=== PATIENT | male | born 1945 | race Caucasian/White ===

== ENCOUNTER 2017-10-05 15:38 | Observation (INO) | payer MEDICARE, OTHER ==
[2017-10-05] MEDS ORDERED: NS 0.9% 1000 ML* 1,000 ML IV ONE (16:19)
--- NOTE | 2017-10-05 16:24 | ED ---
Complex/Multi-Sys Presentation - HPI Summary HPI Summary: 72-year-old male presents with weakness for the past couple days. He states on he was out in the sun weed waking. He states is unsure how long was out in the sun but sat on steps for a long time as did not feel well. He felt very weak after that. He admits to decreased appetite. Denies any headache or dizziness. No fevers. He admits to shortness of breath that he states has resolved but states is still present. admits to occasionally chest pressure in the center of chest two days ago but no chest pain for the past day. No palpitations. He states SOB has improved but states that it has not. No bowel pain. No nausea and no vomiting. no diarrhea. has been urinating as normal and urine has been clear. no hematuria. no flank pain. he also has lost some weight over the past couple days. He is a smoker. He has history of HTN. He did golf yesterday. He claims all of his symptoms are due to the heat. - History Of Current Complaint Chief Complaint: EDWeakness Time Seen by Provider: 10/05/17 16:15 - Allergies/Home Medications Allergies/Adverse Reactions: Allergies Allergy/AdvReac Type Severity Reaction Status Date / Time No Known Allergies Allergy Verified 10/05/17 15:43 PMH/Surg Hx/FS Hx/Imm Hx Endocrine/Hematology History: Denies: Hx Diabetes Cardiovascular History: Reports: Hx Hypertension Denies: Hx Congestive Heart Failure, Hx Pacemaker/ICD Respiratory History: Reports: Other Respiratory Problems/Disorders History: Denies: Hx Renal Disease Sensory History: Denies: Hx Hearing Aid Psychiatric History: Denies: Hx Panic Disorder - Surgical History Surgery Procedure, Year, and Place: APPY Infectious Disease History: No Infectious Disease History: Denies: Traveled Outside the [place] in Last 30 Days - Family History Known Family History: Positive: Hypertension - Social History Alcohol Use: Rare Substance Use Type: Reports: None Smoking Status (MU): Never Smoked Tobacco Review of Systems Negative: Fever Positive: Chest Pain - resolved Positive: Shortness Of Breath. Negative: Cough Negative: Abdominal Pain Positive: Weakness. Negative: Headache All Other Systems Reviewed And Are Negative: Yes Physical Exam Triage Information Reviewed: Yes Vital Signs On Initial Exam: Initial Vitals Temp Pulse Resp BP Pulse Ox 99.2 F 99 18 118/73 96 07/16/18 15:43 10/05/17 15:43 10/05/17 15:43 10/05/17 15:43 10/05/17 15:43 Vital Signs Reviewed: Yes Appearance: Positive: Well-Appearing Skin: Positive: Warm, Dry Head/Face: Positive: Normal Head/Face Inspection Eyes: Positive: Normal, EOMI, NINA, Conjunctiva Clear ENT: Positive: Pharynx normal Neck: Positive: Supple, Nontender, No Lymphadenopathy Respiratory/Lung Sounds: Positive: Clear to Auscultation, Breath Sounds Present Cardiovascular: Positive: Normal, RRR Abdomen Description: Positive: Nontender, Soft Bowel Sounds: Positive: Present Musculoskeletal: Positive: Normal Neurological: Positive: Normal Psychiatric: Positive: Normal Diagnostics - Vital Signs Vital Signs Temp Pulse Resp BP Pulse Ox 10/05/17 15:43 99.2 F 99 18 118/73 96 - Laboratory Result Diagrams: 10/05/17 16:22 10/05/17 16:22 Lab Statement: Any lab studies that have been ordered have been reviewed, and results considered in the medical decision making process. - EKG No standard instances EKG Rhythm: Sinus Rhythm EKG Interpretation: inverted t waves v1-v6 as compared to previous Re-Evaluation - Re-Evaluation First Eval Re-Evaluation Time: 16:58 Comment: claims does not have sob now, convinced patient that should get a chest xray Second Eval Comment: spoke with about results as patient is in xray and she states he has just been off the past couple days. Complex Multi-Symp Course/Dx Course Of Treatment: 72-year-old male presents with weakness for the past couple days. He states on he was out in the sun. He states is unsure how long was out in the sun but sat on steps for a long time as did not feel well. He felt very weak after that. He admits to decreased appetite. Denies any headache or dizziness. No fevers. He admits to shortness of breath that he states has resolved but states is still present. admits to chest pain in center of chest two days ago but no chest pain for the past day. No palpitations. He states SOB has improved but states that it has not. No bowel pain. No nausea and no vomiting. no diarrhea. has been urinating as normal and urine has been clear. no hematuria. no flank pain. he also has lost some weight over the past couple days. He is a smoker. He has history of HTN. on exam lungs CTA. heart RRR. ekg shows T wave inversion in v1-v6 as compared to previous in 2013. labs wbc normal. urine normal. sodium 123. cr 1.2 which is less than previous. troponin .4. discussed with dr lovell who says to admit patient. discussed with patient and states that will agree to potentially be admitted. dr mullins agrees to see patient to admit patient. - Diagnoses Differential Diagnoses/HQI/PQRI: Cardiac Ischemia, Metabolic Abnormality, Urinary Tract Infection Provider Diagnoses: Weakness, Elevated troponin, SOB (shortness of breath) Discharge - Sign-Out/Discharge Documenting (check all that apply): Patient Departure - Discharge Plan Condition: Stable Disposition: ADMITTED TO [facility] - Billing Disposition and Condition Condition: STABLE Disposition: Admitted to [facility]
[2017-10-05 16:37] LABS: ABS Basophils 0.1 10^3/ul (0-0.2); ABS Eosinophils 0.1 10^3/ul (0-0.6); ABS Lymphocytes 1.2 10^3/ul (1.0-4.8); ABS Neutrophils 6.6 10^3/ul (1.5-7.7); ABS Nucleated RBC 0 10^3/ul; Eosinophil % 1.1 % (0-6); Hematocrit 40 % (42-52); Hemoglobin 13.4 g/dl (14.0-18.0); Lymphocyte % 13.1 % (25-47); Mean Corpuscular HGB Conc 34 g/dl (31-36); Mean Corpuscular Hemoglobin 30 pg (27-31); Mean Corpuscular Volume 88 fL (80-94); Mean Platelet Volume 7.4 um3 (7.4-10.4); Nucleated Red Blood Cells % 0; Platelet Count 223 10^3/ul (150-450); Red Blood Count 4.49 10^6/ul (4.00-5.40); Red Cell Distribution Width 13 % (10.5-15)
[2017-10-05 16:49] LABS: Urine Appearance Clear; Urine Blood Negative (Negative); Urine Color Yellow; Urine Ketones Negative (Negative); Urine Protein Negative (Negative); Urine Specific Gravity 1.008 (1.010-1.030); Urine Urobilinogen Negative (Negative)
[2017-10-05 16:55] LABS: EGFR Non-African American 56.6 (>60)
[2017-10-05] MEDS ORDERED: Aspirin 81 mg CHEW TAB* 81 MG TAB.CHEW PO ONE (17:05)
--- NOTE | 2017-10-05 17:28 | RAD ---
INDICATION: Shortness of breath. COMPARISON: Chest x-ray dated January 26, 2013 TECHNIQUE: PA and lateral views of the chest were obtained. FINDINGS: The heart and mediastinum are normal in size and contour. The lungs are grossly clear. There is no evidence of large pleural effusion. Visualized bones are normal for the patient's age. There is no radiographic evidence of free air beneath the diaphragm IMPRESSION: No radiographic evidence of acute cardiopulmonary disease.
[2017-10-05] MEDS ORDERED: Acetaminophen TAB* 325 MG PO PRN (17:58)
[2017-10-05] MEDS ORDERED: NS 0.9% 1000 ML* 1,000 ML IV SCH (18:00)
[2017-10-05] MEDS: Heparin VIAL(*) 5000 UNITS/ML VIAL (FIVE THOUSAND) SUBCUT SCH (19:57)
[2017-10-06 08:23] VITALS: BP 121/71
[2017-10-06] MEDS: Heparin VIAL(*) 5000 UNITS/ML VIAL (FIVE THOUSAND) SUBCUT SCH (08:44)
--- NOTE | 2017-10-06 11:26 | HP ---
CC: Dr. Casey * HISTORY AND PHYSICAL: DATE OF ADMISSION: 10/05/17 PRIMARY CARE PROVIDER: Dr. Casey. CHIEF COMPLAINT: Fatigue and weakness. HISTORY OF PRESENT ILLNESS: Mr. Araujo is a 72-year-old male who has a past medical history significant for hypertension only, who states that this past he was out trimming trees in the heat when he began to develop significant shortness of breath. The patient had no chest pain at that time. He sat down on the stairs and waited for quite some time. He estimates that he was outside for probably at least a few hours in the heat. Over the course of the next several days, the patient continued to feel very weak and fatigued. He felt very wiped out. He felt very tired. Again, he had no chest pain. The shortness of breath has essentially resolved. The patient's contacted the patient's primary care provider's office on the day of admission and reviewed the history of what had happened over the last few days and he was referred to the emergency room. At this point, the patient states that he is feeling quite a bit better than he had been. PAST MEDICAL HISTORY: Hypertension. PAST SURGICAL HISTORY: None. MEDICATIONS: The patient states lisinopril, though he does not know the dose. We will need to contact the patient's primary care provider's office to get this information. ALLERGIES: No known drug allergies. FAMILY HISTORY: The patient is adopted. He does not know his parent's history. SOCIAL HISTORY: The patient is a former cigarette smoker. He now smokes approximately 1 pipe daily. He drinks alcohol on occasion. He uses marijuana rarely. He worked at [employer]. He is . He has no children. His is his healthcare proxy. REVIEW OF SYSTEMS: A complete 11-system review of systems is obtained. Pertinent positives and negatives are as per HPI and otherwise negative. PHYSICAL EXAMINATION GENERAL: The patient is a well-developed, elderly male, seen sitting up in the stretcher, in no acute distress. VITAL SIGNS: Blood pressure 127/69, pulse 77, respirations 19, temp 98.5, O2 sat 99% on room air. HEENT: Pupils are equal and round. Extraocular muscles are intact. Oropharynx is clear. Oral mucosa is moist. There is no submandibular, cervical , or supraclavicular adenopathy. Thyroid is not enlarged. No thyroid nodules are noted. PULMONARY: Lungs are clear to auscultation bilaterally. CARDIAC: Normal S1, S2. Regular rate and rhythm. I do not appreciate any murmurs. There is no lower extremity edema. ABDOMEN: Bowel sounds present. Abdomen is soft, nontender, nondistended. MUSCULOSKELETAL: There is no cyanosis or clubbing of the digits. There is full active range of motion of all 4 extremities. NEURO: Cranial nerves II through XII are grossly intact. Sensation is intact to light touch throughout. Strength is 5/5 and symmetric in both upper and lower extremities bilaterally. PSYCH: The patient is alert. He is oriented x3. Affect appears appropriate. SKIN: Warm and dry. There are no rashes. DIAGNOSTIC STUDIES/LAB DATA: WBC 9.0, hemoglobin 13.4, hematocrit 40, platelets 223. Sodium 132, potassium 3.7, chloride 99, CO2 27, BUN 22, creatinine 1.25, glucose 128, lactic acid 0.6, calcium 9.1, magnesium 2.0. Bilirubin 0.6, AST 15, ALT 13, alk phos 47. CPK is 34. Troponin 0.04. Albumin 3.4. TSH 2.19. Urinalysis is negative for signs of infection. EKG reveals normal sinus rhythm with ST elevation noted within V3, perhaps V2, though not as significant. Chest x-ray: No acute cardiopulmonary disease. ASSESSMENT AND PLAN: Mr. Araujo is a 72-year-old male with a history of hypertension and tobacco use, who presents to the emergency room with complaints of fatigue and an episode of significant shortness of breath this past . 1. Fatigue and shortness of breath. At this point, given the patient's EKG, which is changed from prior and slightly elevated troponin of 0.04, the patient will be admitted and ruled out for an acute coronary syndrome. The patient denies chest pain, whatsoever. If the patient does rule out, he will undergo nuclear stress test tomorrow. The patient is in agreement with this plan. My question is, the episode of shortness breath that he was having on the prior to admission if it was an anginal equivalent. 2. Hypertension. We will get the patient's medication list from his primary care provider and resume his usual dose of his antihypertensive. 3. Probable stage 2 to 3 chronic kidney disease. The patient's creatinine today is 1.25. In 2013, it was 1.5. I do not have any other creatinines to compare to at this time. 4. DVT prophylaxis. According to the Adult Thrombosis Prophylaxis Risk Factor Assessment Guide, the patient has a total risk factor score of 2, making him moderate risk. He will be placed on heparin 5000 units subcutaneous q.12 hours. 5. Code status is full. TIME SPENT: Fifty minutes was spent admitting this patient. [id number]/[facility] #: [id number] LOB[place]
--- NOTE | 2017-10-06 13:30 | RAD ---
Edited for charges. Indication: Fatigue. Myocardial perfusion scan was performed utilizing 1 day protocol. Rest myocardial perfusion was performed after intravenous injection of 10.2 mCi technetium 99m tetrofosmin. Treadmill stress study was performed. The maximum heart rate achieved was 99% of the maximum predicted value. 26.4 mCi of technetium 99m tetrofosmin was injected for the stress portion of the study. Homogeneous distribution of the radiotracer throughout the left ventricle is of normal size left ventricle. No evidence of fixed or reversible perfusion defect is identified. The ejection fraction at stress is 66%. Evaluation of wall motion demonstrates no focal wall motion abnormality. IMPRESSION: No fixed or reversible perfusion defect is identified. Normal ejection fraction. ASSESSMENT: Low risk Based on imaging criteria from ACC/AHA 2002 Guideline Update for the Management of Patients With Chronic Stable Angina Table 23. Noninvasive Risk Stratification. MTDD
--- NOTE | 2017-10-07 11:36 | DS ---
CC: Dr. Casey * DISCHARGE SUMMARY: DATE OF ADMISSION: 10/05/17 DATE OF DISCHARGE: 10/06/17 PRIMARY CARE PROVIDER: Dr. Casey. PRINCIPAL DIAGNOSIS: Noncardiac chest pain. SECONDARY DIAGNOSIS: Hypertension. DISCHARGE MEDICATIONS: The patient to resume home dose of lisinopril. HOSPITAL COURSE: Mr. Araujo is a 72-year-old male with a history of hypertension , who presented to the emergency room with complaints of significant fatigue and an episode of severe shortness of breath on the prior to admission. The patient was ultimately admitted and ruled out for an acute coronary syndrome with serial troponins and EKGs. The patient's troponin was found to be very mildly elevated at 0.04, where it remained. Additionally, he had slight ST elevation in the anterior leads with his EKG, though no complaints of chest pain. The patient underwent an exercise nuclear stress test on the day of discharge, which did not reveal any evidence of infarct or ischemia. The patient's ejection fraction on stress test was estimated to be 66 %. At this point, it was felt that the patient is stable for discharge home. On the day of discharge, the patient is awake, alert, and oriented, sitting on the edge of the bed, in no acute distress. His cardiac exam reveals a normal S1 , S2 with a regular rate and rhythm. His lungs are clear. His abdomen is soft , nontender, nondistended. He moves all 4 extremities symmetrically. His vital signs are stable with a blood pressure of 121/71 and a pulse rate of 80. Again, the patient is now stable for discharge. FOLLOWUP CONCERNS: The patient is being discharged home today, 10/06/17. ACTIVITY LEVEL: As tolerated. DIET: Regular. CONDITION ON DISCHARGE: Stable. The patient has been asked to follow up with his primary care provider in the next 4 to 7 days. TIME SPENT: Twenty minutes was spent discharging this patient. [id number]/[facility] #: [id number] MTDD
== END 2017-10-06 14:20 | disposition home or self-care (01) ==
LOC: ED 15:38 → MEDTELE 18:18
PROVIDERS: ADMIT Hospitalist; ATTEND Hospitalist
DX: R07.9 Chest pain, unspecified (principal); I10 Essential (primary) hypertension; R53.1 Weakness; R79.89 Other specified abnormal findings of blood chemistry; R06.02 Shortness of breath
CPT/HCPCS: 36415; 71046; 78452; 80053; 81003; 82550; 83605; 83735; 84443; 84484; 85025; 93005; 93017; 99284; A9270-GY; A9502; G0378; J1644

== ENCOUNTER 2018-07-07 07:25 | Emergency (ER) | payer MEDICARE ==
[~2018-07-07 07:25] MED LIST: Amiodarone 150 MG IVPREMIX* 1.5 MG/ML 100 ML BAG IV ONE; EPINEPHRINE 1 MG/ML 1 ML VIAL ONE; Sodium Bicarbonate 8.4% IV* 50 ML VIAL ONE
--- NOTE | 2018-07-07 07:41 | ED ---
Cardiac Resuscitation - HPI Summary HPI Summary: An unidentified male brought in by [facility] ambulance presents to [facility] following a witnessed cardiac arrest being given CPR. Per EMS, the patient call EMS for sob. EMS states his sats were noted to be in the 80s. He was placed on CPAP and then went unresponsive and apneic. CPR was started immediately by EMS. Pt had 2 18 guages placed and received 2 doses of epi enroute to ED. OPA was placed with BVM. EMS states pt with recent dx of PNA but no other history known. Pt's name is not known at time of presentation. - History of Current Complaint Chief Complaint: EDCardiacArrest Stated Complaint: ABC ALERT Hx Obtained From: EMS Arrest Witnessed: Yes Down-time Before Advanced Life Support Initiated: Down-time before ALS initiated : - immediate Was AED Placed on Patient: Yes AED Placed on Patient By: EMS Did AED Recommend Defibrillation: No Was Defibrillating Shock Administered: No Did Patient Have Return of Spontaneous Circulation (ROSC): No - Prehospital Findings Airway: Gag Reflex Absent Breathing: Apnea Circulation/Rhythm: PEA - Prehospital Intervention Airway: Oral Airway - Prehospital Response Airway: Gag Reflex Absent Breathing: Equal Breath Sounds - with BVM - Allergies/Home Medications Allergies/Adverse Reactions: Allergies Allergy/AdvReac Type Severity Reaction Status Date / Time No Known Allergies Allergy Verified 10/05/17 15:43 - Past Medical History Past Medical History: Unobtainable Due to Extremis - Family History Family History: Unobtainable Due to Extremis - Social History Social History: Lives with Family - Review of Systems Review of Systems: Unobtainable Due to Extremis Physical Examination - Summary Physical Exam Summary: unresponsive- apneic and pulses pupils fixed, dilated ashen, cool skin GCS 3 - Physical Examination Completion Of Physical Exam Limited Due To: Extremis Resuscitation Termination Time: 07:26 Resuscitation: Unsuccessful - ED Findings Airway: Gag Reflex Absent Breathing: Apnea Circulation/Rhythm: PEA Disability/Neurological: Unresponsive, Pupils Fixed - 5mm - ED Intervention Airway: Oral Airway Breathing: By ED Physician, ETT Cuffed, Intubation:, Oxygen-Bag - ED Response Airway: Gag Reflex Absent Breathing: ETT in Airway:, Placement Confirmed by Auscultation, Placement Confirmed by Capnometer Circulation/Rhythm: PEA - Glascow Coma Score Eye Openin - None Motor: 1 - None Verbal: 1 - Intubated Coma Scale Total: 3 T Procedures - Intubation Intubation Method: orotracheal - glidescope Tube Size (cm): 7.5 Breath Sounds after Intubation: equal Intubation Complications: no complications Post Intubation Xray: No - Additional Procedures Additional Procedures: CPR Diagnostics - Vital Signs Vital Signs Temp Pulse Resp BP Pulse Ox 07/07/18 07:30 96.9 F 120 14 131/20 88 - Laboratory Lab Statement: Any lab studies that have been ordered have been reviewed, and results considered in the medical decision making process. Cardiac Resus. Course/Dx - Course Course Of Treatment: Patient patient presents by EMS in full cardiopulmonary arrest. Patient called EMS for shortness of breath. Patient was placed on BiPAP and became apneic and pulseless and for EMS. CPR started immediately. Patient had an opiate place and BVM initiated on high flow oxygen. Patient had to 18-gauge IVs placed with fluid patient was given 2 rounds of epi prior to arrival. Upon arrival patient continues to be apneic and pulseless. CPR in progress. Patient BV and easily. ACL S care continued. Please see code sheet for details of time in medications. Patient received a total of 2 epinephrines , amiodarone, calcium carbonate, dextrose, and bicarbonate, 2 L NS - remained in in PEA. Pt pupils fixed and dilated upon arrival and remained so throughout code. TOD: 7:36. Met with pt's - she reports for several days patient has not been feeling well. She. She states patient was getting short of breath with activity but seemed to improve when he settled. Patient states 2 days ago she finally convinced to urgent care as he refused with his primary, the ED. Patient states at urgent care he is present antibiotics for pneumonia. Patient states last night she thinks he maybe was feeling better. This morning patient got up to use restroom. Patient's could hear him breathing very hard. The patient got back to the bedroom he [place] to the bed and started screaming that he had chest pain. Patient stated "I'm having a heart attack." called EMS. States when they arrived they put him on oxygen and an IV and give him a nebulized treatment of complaints. I updated patient's of events until the patient had . was escorted to bedside by RN. Dr. Ford - [place] - 08:06 - reviewed case - not taking as an ME case. Dr. Casey - 08:18 - updated regarding case - will complete certificate - Diagnoses Provider Diagnoses: Cardiopulmonary arrest - Provider Notifications Discussed Care Of Patient With: Isabella Ford Time Discussed With Above Provider: 08:06 Instructed by Provider To: Other - reviewed case - not taking as an ME case Discharge - Sign-Out/Discharge Documenting (check all that apply): Patient Departure Patient Received Moderate/Deep Sedation with Procedure: No - Discharge Plan Condition: Disposition: Referrals: Go Casey MD [Primary Care Provider] - - Billing Disposition and Condition Condition: Disposition: - Attestation Statements Document Initiated by Scribe: Yes Documenting Scribe: Mike Ledesma Provider For Whom Scribe is Documenting (Include Credential): Eusebia Delgado MD Scribe Attestation: Mike Kaur, scribed for Eusebia Delgado MD on 07/07/18 at 0836. Scribe Documentation Reviewed: Yes Provider Attestation: The documentation as recorded by the Mike batista accurately reflects the service I personally performed and the decisions made by , Eusebia Delgado MD Status of Scribe Document: Viewed
[2018-07-07 08:02] VITALS: BP 0/0
== END 2018-07-07 10:18 | disposition expired ==
LOC: EDUNIT# → EDBD → ED 07:25
DX: I46.9 Cardiac arrest, cause unspecified (principal)
CPT/HCPCS: 96374; 96375; 99285; J0282